=== PATIENT | male | born 1985 | race Caucasian/White ===

== ENCOUNTER 2022-06-22 11:04 | Outpatient (CLI) | payer SELFPAY ==
--- NOTE | 2022-06-22 11:33 | MR_ITS ---
WS: [id number] MRI LEFT KNEE NONCONTRAST TECHNIQUE: Axial PD, coronal PD fat sat, coronal PD, sagittal PD, and sagittal PD fat-sat images obta ined. CLINICAL INFORMATION: LEFT KNEE INJURY COMPARISON: None. FINDINGS: Distal quadriceps and patella tendons are intact. High-grade tear of the ACL. No normal ACL fibers. S mall amount of edema and fluid along the tibial tunnel. Small suprapatellar effusion. Normal PCL. Med ial and lateral meniscus are normal in appearance. Contusion in the posterior lateral tibial plateau. No visualized contusions in the femoral condyle. Mild chondromalacia patella. Normal medial and lateral patellar tilt. Normal popliteal fossa. Normal MCL and LCL. MR/MR knee LT wo con* [id number] IMPRESSION: 1. High-grade tear of the ACL with no normal fibers visualized. Normal PCL. 2. Small suprapatellar effusion. 3. Bony contusion involving the posterior lateral tibial plateau. 4. No acute appearing meniscal tears. Mild chondromalacia patella. 5. Normal LCL and MCL. Outbridge grading: grade II: blister-like swelling/fraying of articular cartila ge extending to surface
== END 2022-06-22 11:05 | disposition home or self-care (01) ==
LOC: RAD 11:07
PROVIDERS: PCP Family Medicine; Visit Provider Nurse Practitioner Family
DX: S83.512A Sprain of anterior cruciate ligament of left knee, initial encounter (principal); X58.XXXA Exposure to other specified factors, initial encounter; M25.462 Effusion, left knee; M22.42 Chondromalacia patellae, left knee
CPT/HCPCS: 73721